=== PATIENT | female | born 1935 | race Caucasian/White ===

== ENCOUNTER 2017-06-05 11:43 | Emergency (ER) | payer BC, MEDICARE, SELFPAY ==
[2017-06-05 11:51] VITALS: BP 156/81; PULSE 114; RESP 18; TEMP 36.9; O2SAT 97; BMI 24.7
--- NOTE | 2017-06-05 12:08 | HMH.EDGENADL ---
ED Disposition Clinical Impression: Dementia Qualifiers: Dementia type: Alzheimer's disease Upper respiratory infection Qualifiers: Pharyngitis/tonsillitis etiology: unspecified etiology Disposition: Home, Self-Care Condition on Discharge: Good Instructions: DI for Alzheimer's Disease, Common Cold Additional Instructions: Zithromax, see Dr. Lin and talk with him about need for sitter and/or home health needs for support for caregivers Referrals: Aby Lin [Primary Care Provider] - - Critical Care Critical Care Time: No Attestation: On 06/05/17, the high probability of a clinically significant, sudden or life threatening deterioration of the following system(s) required my full and direct attention, intervention and personal management. The time I documented below is in addition to time spent performing reported procedures but includes the following listed in this critical care notation. Medical Decision Making Vital Signs: 06/05/17 11:51 06/05/17 14:14 Temperature 98.4 F Temperature Source Oral Pulse Rate [Right Brachial] 114 H 96 H Respiratory Rate 18 18 Blood Pressure [Right Arm] 156/81 147/92 Blood Pressure Mean [Right Arm] 106 110 Blood Pressure Source [Right Arm] Automatic Cuff Automatic Cuff Blood Pressure Position [Right Arm] Sitting Sitting 02 Sat by Pulse Oximetry 97 92 L Oxygen Delivery Method Room Air Room Air - Lab Data Lab Results 06/05/17 11:51: POC Glucose 106 06/05/17 12:20: WBC 5.6, RBC 4.50, Hgb 14.0, Hct 41.8, MCV 92.8, MCH 31.1, MCHC 33.5, RDW 13.0, Plt Count 172, MPV 8.4, Neut % (Auto) 75.7, Lymph % (Auto) 16.5, [place] % (Auto) 5.5, Eos % (Auto) 1.4, Baso % (Auto) 0.9, Neut # (Auto) 4.3, Lymph # (Auto) 0.9, [place] # (Auto) 0.3, Eos # (Auto) 0.1, Baso # (Auto) 0.1 06/05/17 12:20: Sodium 133 L, Potassium 3.7, Chloride 98, Carbon Dioxide 24, Anion Gap 14.7, BUN 15, Creatinine 1.19 H, Estimated Creat Clear 35, Estimated GFR 43 L, Est GFR ( Amer) 53 L, Glucose 99, Calcium 8.6, Total Bilirubin 0.9, AST 30, ALT 21, Alkaline Phosphatase 84, Total Protein 8.0, Albumin 3.7, Globulin 4.3 H, Albumin/Globulin Ratio 0.9 L 06/05/17 12:20: Lactic Acid 1.1 06/05/17 12:25: Influenza Type A Ag Negative, Influenza Type B Ag Negative 06/05/17 12:30: Urine Color Yellow, Urine Appearance Clear, Urine pH 6.0, Ur Specific [place] 1.025, Urine Protein 30, Urine Glucose (UA) Negative, Urine Ketones Trace, Urine Blood Trace-i, Urine Nitrate Negative, Urine Bilirubin Negative, Urine Urobilinogen 0.2, Ur Leukocyte Esterase Negative, Urine WBC 3-5, Ur Squamous Epith Cells 5-10, Urine Bacteria 3+ Result diagrams: 06/05/17 12:20 06/05/17 12:20 Orders (Tests/Meds): ED MEDICATIONS Generic Name Dose Route Start Last Admin Trade Name Freq PRN Reason Stop Dose Admin Sodium Chloride 1,000 mls @ 100 mls/hr 06/05/17 12:30 Sod Chloride 0.9% 1000ml Bag IV 07/05/17 12:29 .Q10H [facility] ORDERS Category Date Time Status Blood Culture Stat Micro 06/05/17 12:20 Received Urine Culture Stat Micro 06/05/17 12:30 Received ECG Request by /Tana Stat Y 06/05/17 12:22 Ordered - Radiology Data #1 Image(s): Chest Image Reviewed: Yes I reviewed the patient's radiology results, Yes I have reviewed radiologist's interpretation Preliminary Findings: Normal Heart Size (suspected bibasilar infiltrate per radiologist) suspect bibasilar infiltrate. - CT Data CT Scan: Head Time Received: 15:[address] Reviewed: Yes: I have reviewed the patient's CT results Preliminary Findings: Normal/NAD - ECG Data Tracing #1 I reviewed this ECG and interpreted as documented below: - Caden Inquiry Pt receiving controlled substance: No - Reevaluation(s) Time: 15:48 (Patient neurologically unchanged. agrees to follow-up with Dr. Lin next week and to discuss need for home health.) General Adult HPI - General Chief complaint: Altered Mental Status Stated complaint: mental s
--- NOTE | 2017-06-05 12:11 | XR_ITS ---
XR chest 2V Ordering Physician: Rani Lucio MD Patient Age: 82 years: Female HISTORY: ITS.REASON: SOB TECHNIQUE: PA and lateral chest COMPARISON :03/10/2017 FINDINGS There is chronic changes at the lung bases but suspect additional minimal infrahilar infiltrate extending towards lower lobe of both left and right lung base. Subtle suspect infiltrate slightly more diffuse I believe on right lung base. Right lower lobe but does not obscure the hemidiaphragm. Clinical correlation required. There are Underlying chronic lung changes borderline thickened central airways reflecting chronic change and slight coarsening markings throughout the lungs bilaterally. . Heart normal size. [place] and mediastinal structures unremarkable and stable. No pleural effusion. No pneumothorax. Chest wall unremarkable. IMPRESSION: Suspect mild infrahilar/bibasilar infiltrate superimposed on chronic changes..
--- NOTE | 2017-06-05 12:11 | CT_ITS ---
CT Request head Ordering Physician: Rani Lucio MD Patient Age: 82 years: Female HISTORY: ITS.REASON: confusion . Mental status changes TECHNIQUE: Routine axial CT head without contrast. Bone and brain windows performed. No previous studies for comparison. COMPARISON :None FINDINGS No definitive acute findings No hemorrhage. No territorial infarct. No subdural collection Prominent diffuse cerebral atrophy. Typical to slightly advanced for age. Chronic small vessel deep white matter changes likely account for the vague low-density throughout periventricular deep white matter.. Also Noting vague low-density focus on Most evident anteriorly left basal ganglia and towards left insular cortex which I favor more likely reflects chronic small vessel feature.... Difficult to totally exclude a recent event but more likely old. I would note upper normal density at the middle cerebral arteries bilaterally particularly the right. Warrants correlation. Could reflect a relative dehydration. Also note basilar artery tip upper normal prominence. The posterior fossa is unremarkable CP angles clear. The ventricles and basal cisterns are clear with the right lateral ventricle slightly more generous than the left likely reflecting normal variation. Moderate bilateral bilateral ethmoid sinusitis moderate mucosal thickening here with mild mucosal thickening and sphenoid sinus and extending to the superior maxillary sinuses which are incompletely visualized. Small underdeveloped frontal sinus. Deviation nasal septum. Mastoid air cells fairly clear with middle air and IACs unremarkable =====IMPRESSION: 1. No discrete acute intracranial findings. No hemorrhage. No territorial infarct. No subdural collection 2. Prominent Diffuse cerebral atrophy.. Typical to Slightly advanced for age 3. Chronic small vessel deep white matter ischemic changes throughout cerebral hemispheres as described above in text.] Nothing definitely acute
--- NOTE | 2017-06-05 12:22 | ED_ITS ---
ED Disposition Clinical Impression: Dementia Qualifiers: Dementia type: Alzheimer's disease Upper respiratory infection Qualifiers: Pharyngitis/tonsillitis etiology: unspecified etiology Disposition: Home, Self-Care Condition on Discharge: Good Instructions: DI for Alzheimer's Disease, Common Cold Additional Instructions: Zithromax, see Dr. Lin and talk with him about need for sitter and/or home health needs for support for caregivers Referrals: Aby Lin [Primary Care Provider] - - Critical Care Critical Care Time: No Attestation: On 06/05/17, the high probability of a clinically significant, sudden or life threatening deterioration of the following system(s) required my full and direct attention, intervention and personal management. The time I documented below is in addition to time spent performing reported procedures but includes the following listed in this critical care notation. Medical Decision Making Vital Signs: 06/05/17 11:51 06/05/17 14:14 Temperature 98.4 F Temperature Source Oral Pulse Rate [Right Brachial] 114 H 96 H Respiratory Rate 18 18 Blood Pressure [Right Arm] 156/81 147/92 Blood Pressure Mean [Right Arm] 106 110 Blood Pressure Source [Right Arm] Automatic Cuff Automatic Cuff Blood Pressure Position [Right Arm] Sitting Sitting 02 Sat by Pulse Oximetry 97 92 L Oxygen Delivery Method Room Air Room Air - Lab Data Lab Results 06/05/17 11:51: POC Glucose 106 06/05/17 12:20: WBC 5.6, RBC 4.50, Hgb 14.0, Hct 41.8, MCV 92.8, MCH 31.1, MCHC 33.5, RDW 13.0, Plt Count 172, MPV 8.4, Neut % (Auto) 75.7, Lymph % (Auto) 16.5 , [place] % (Auto) 5.5, Eos % (Auto) 1.4, Baso % (Auto) 0.9, Neut # (Auto) 4.3, Lymph # (Auto) 0.9, [place] # (Auto) 0.3, Eos # (Auto) 0.1, Baso # (Auto) 0.1 06/05/17 12:20: Sodium 133 L, Potassium 3.7, Chloride 98, Carbon Dioxide 24, Anion Gap 14.7, BUN 15, Creatinine 1.19 H, Estimated Creat Clear 35, Estimated GFR 43 L, Est GFR ( Amer) 53 L, Glucose 99, Calcium 8.6, Total Bilirubin 0.9, AST 30, ALT 21, Alkaline Phosphatase 84, Total Protein 8.0, Albumin 3.7, Globulin 4.3 H, Albumin/Globulin Ratio 0.9 L 06/05/17 12:20: Lactic Acid 1.1 06/05/17 12:25: Influenza Type A Ag Negative, Influenza Type B Ag Negative 06/05/17 12:30: Urine Color Yellow, Urine Appearance Clear, Urine pH 6.0, Ur Specific [place] 1.025, Urine Protein 30, Urine Glucose (UA) Negative, Urine Ketones Trace, Urine Blood Trace-i, Urine Nitrate Negative, Urine Bilirubin Negative, Urine Urobilinogen 0.2, Ur Leukocyte Esterase Negative, Urine WBC 3-5 , Ur Squamous Epith Cells 5-10, Urine Bacteria 3+ Result diagrams: 06/05/17 12:20 06/05/17 12:20 Orders (Tests/Meds): ED MEDICATIONS Generic Name Dose Route Start Last Admin Trade Name Freq PRN Reason Stop Dose Admin Sodium Chloride 1,000 mls @ 100 mls/hr 06/05/17 12:30 Sod Chloride 0.9% 1000ml Bag IV 07/05/17 12:29 .Q10H [facility] ORDERS Category Date Time Status Blood Culture Stat Micro 06/05/17 12:20 Received Urine Culture Stat Micro 06/05/17 12:30 Received ECG Request by /Tana Stat Y 06/05/17 12:22 Ordered - Radiology Data #1 Image(s): Chest Image Reviewed: Yes I reviewed the patient's radiology results, Yes I have reviewed radiologist's interpretation Preliminary Findings: Normal Heart Size (suspected bibasilar infiltrate per radiologist) suspect bib
[2017-06-05 12:25] LABS: POC Glucose,Bedside 106 mg/dL
[2017-06-05 12:41] LABS: Microscopic, Urine URINE MICROSCOPIC (MICROSCOPIC)
[2017-06-05 12:46] LABS: Basophils # 0.1 K/mm3 (0-0.2); Basophils % 0.9 % (0.1-2.0); Eosinophils # 0.1 K/mm3 (0.0-0.4); Eosinophils % 1.4 % (0.1-12.0); Hematocrit 41.8 % (37.0-47.0); Lymphocytes # 0.9 K/mm3 (0.7-4.5); Lymphocytes % 16.5 K/mm3 (10-50); Mean Corpuscular HGB Conc 33.5 g/dL (31.8-35.4); Mean Corpuscular Hemoglobin 31.1 pg (27.0-31.2); Mean Corpuscular Volume 92.8 fl (81-99); Mean Platelet Volume 8.4 fl (7.4-10.4); Monocytes # 0.3 K/mm3 (0.1-1.0); Monocytes % 5.5 % (1.7-9.3); Neutrophils # 4.3 K/mm3 (1.8-7.8); Neutrophils % 75.7 % (37.0-80.0); Platelet Count 172 K/mm3 (142-424); White Blood Count 5.6 K/mm3 (4.8-10.8)
[2017-06-05 12:46] LABS: Appearance,Urine CLEAR (Clear); Bilirubin,Urine Negative (Negative); Blood, Urine TRACE-I (Negative); Color,Urine YELLOW (Yellow); Glucose,Urine (UA) Negative (Negative); Ketones,Urine TRACE (Negative); Leukocyte Esterase,Urine Negative (Negative); Nitrate,Urine Negative (Negative); Protein,Urine 30 (Negative); Specific Gravity, Urine 1.025 (1.005-1.030); Urobilinogen,Urine 0.2 EU/dl (0.2)
[2017-06-05 12:54] LABS: Alanine Aminotransferase 21 U/L (12-78); Albumin Level 3.7 gm/dL (3.4-5.0); Albumin/Globulin Ratio 0.9 (1.1-1.8); Alkaline Phosphatase 84 U/L (46-116); Anion Gap 14.7 mEq/L (5-15); Aspartate Amino Transferase 30 U/L (15-37); Bilirubin,Total 0.9 mg/dL (0.2-1.0); Blood Urea Nitrogen 15 mg/dL (7-18); Calcium 8.6 mg/dL (8.5-10.1); Carbon Dioxide 24 mmol/L (21.0-32.0); Chloride 98 mmol/L (98-107); Creatinine Clearance Estimated 35 mL/min (0-300); Creatinine,Serum 1.19 mg/dL (0.55-1.02); Estimated Glomerular Filt Rate 43 ml/min (>60); GFR (African American) 53 ML/MIN (>60); Globulin 4.3 gm/dl (1.3-3.2); Glucose 99 mg/dL (74-106); Potassium 3.7 mmoL/L (3.5-5.1); Sodium 133 mmol/L (136-145)
[2017-06-05 12:55] LABS: Bacteria,Urine 3+ /lpf
[2017-06-05 12:58] LABS: Lactic Acid 1.1 mmol/L (0.4-2.0)
[2017-06-05 14:14] VITALS: BP 147/92; PULSE 96; RESP 18; O2SAT 92
== END 2017-06-05 16:30 | disposition home or self-care (01) ==
PROVIDERS: Emergency Provider Emergency Medicine; Family Provider Family Medicine; PCP Family Medicine
DX: G30.9 Alzheimer's disease, unspecified (principal); F02.80 Dementia in other diseases classified elsewhere, unspecified severity, without behavioral disturbance, psychotic disturbance, mood disturbance, and anxiety; J06.9 Acute upper respiratory infection, unspecified; Z85.9 Personal history of malignant neoplasm, unspecified
CPT/HCPCS: 71046; 80053; 81001; 82962; 83605; 85025; 87040; 87086; 87275; 87276; 93005; 99284

== ENCOUNTER 2017-06-10 00:07 | Emergency (ER) | payer BC, MEDICARE, SELFPAY ==
[2017-06-10 00:15] VITALS: BP 154/98; PULSE 99; RESP 18; TEMP 36.7; O2SAT 93; BMI 24.7
[2017-06-10 01:15] LABS: Basophils # 0.1 K/mm3 (0-0.2); Basophils % 0.8 % (0.1-2.0); Eosinophils # 0.2 K/mm3 (0.0-0.4); Eosinophils % 2.5 % (0.1-12.0); Hematocrit 36.2 % (37.0-47.0); Hemoglobin 12.5 g/dL (12.2-16.2); Lymphocytes # 1.5 K/mm3 (0.7-4.5); Lymphocytes % 22.7 K/mm3 (10-50); Mean Corpuscular HGB Conc 34.5 g/dL (31.8-35.4); Mean Corpuscular Hemoglobin 31.6 pg (27.0-31.2); Mean Corpuscular Volume 91.5 fl (81-99); Mean Platelet Volume 8.7 fl (7.4-10.4); Monocytes # 0.3 K/mm3 (0.1-1.0); Monocytes % 5.1 % (1.7-9.3); Neutrophils # 4.7 K/mm3 (1.8-7.8); Neutrophils % 68.9 % (37.0-80.0); Platelet Count 220 K/mm3 (142-424); Red Blood Count 3.96 M/mm3 (4.20-5.40); White Blood Count 6.8 K/mm3 (4.8-10.8)
[2017-06-10 01:31] LABS: Alanine Aminotransferase 22 U/L (12-78); Albumin Level 3.4 gm/dL (3.4-5.0); Albumin/Globulin Ratio 0.8 (1.1-1.8); Alkaline Phosphatase 73 U/L (46-116); Anion Gap 16.1 mEq/L (5-15); Aspartate Amino Transferase 25 U/L (15-37); Bilirubin,Total 0.5 mg/dL (0.2-1.0); Blood Urea Nitrogen 14 mg/dL (7-18); Calcium 8.6 mg/dL (8.5-10.1); Carbon Dioxide 25 mmol/L (21.0-32.0); Chloride 100 mmol/L (98-107); Creatinine Clearance Estimated 43 mL/min (0-300); Creatinine,Serum 1.02 mg/dL (0.55-1.02); Estimated Glomerular Filt Rate 52 ml/min (>60); GFR (African American) 63 ML/MIN (>60); Globulin 4.3 gm/dl (1.3-3.2); Glucose 102 mg/dL (74-106); Potassium 3.1 mmoL/L (3.5-5.1); Sodium 138 mmol/L (136-145); Total Protein,Serum 7.7 gm/dL (6.4-8.2)
--- NOTE | 2017-06-10 01:54 | HMH.EDAMS ---
ED Disposition Clinical Impression: Upper respiratory infection Qualifiers: URI type: unspecified URI Qualified Code(s): J06.9 - Acute upper respiratory infection, unspecified Dementia Qualifiers: Dementia type: Alzheimer's disease Alzheimer's disease onset: unspecified onset Dementia behavioral disturbance: with behavioral disturbance Qualified Code(s): G30.9 - Alzheimer's disease, unspecified; F02.81 - Dementia in other diseases classified elsewhere with behavioral disturbance Disposition: Home, Self-Care Condition on Discharge: Good Instructions: DI for Alzheimer's Disease Additional Instructions: call pcp for follow up Referrals: Aby Lin [Primary Care Provider] - - Critical Care Critical Care Time: No Attestation: On 06/10/17, the high probability of a clinically significant, sudden or life threatening deterioration of the following system(s) required my full and direct attention, intervention and personal management. The time I documented below is in addition to time spent performing reported procedures but includes the following listed in this critical care notation. Medical Decision Making Vital Signs: 06/10/17 00:15 Temperature 98.0 F Temperature Source Oral Pulse Rate [Right Radial] 99 H Respiratory Rate 18 Blood Pressure [Right Arm] 154/98 Blood Pressure Mean [Right Arm] 116 Blood Pressure Source [Right Arm] Manual Cuff/ Doppler Blood Pressure Position [Right Arm] Sitting 02 Sat by Pulse Oximetry 93 L Oxygen Delivery Method Room Air - Lab Data Lab results reviewed: Yes: I reviewed the patient's lab results. Lab Results 06/10/17 01:15: WBC 6.8, RBC 3.96 L, Hgb 12.5, Hct 36.2 L, MCV 91.5, MCH 31.6 H, MCHC 34.5, RDW 13.0, Plt Count 220, MPV 8.7, Neut % (Auto) 68.9, Lymph % (Auto) 22.7, [place] % (Auto) 5.1, Eos % (Auto) 2.5, Baso % (Auto) 0.8, Neut # (Auto) 4.7, Lymph # (Auto) 1.5, [place] # (Auto) 0.3, Eos # (Auto) 0.2, Baso # (Auto) 0.1 06/10/17 01:15: Sodium 138, Potassium 3.1 L, Chloride 100, Carbon Dioxide 25, Anion Gap 16.1 H, BUN 14, Creatinine 1.02, Estimated Creat Clear 43, Estimated GFR 52 L, Est GFR ( Amer) 63, Glucose 102, Calcium 8.6, Total Bilirubin 0.5, AST 25, ALT 22, Alkaline Phosphatase 73, Total Protein 7.7, Albumin 3.4, Globulin 4.3 H, Albumin/Globulin Ratio 0.8 L Result diagrams: 06/10/17 01:15 06/10/17 01:15 Orders (Tests/Meds): ORDERS Category Date Time Status Troponin I Stat Lab 06/10/17 01:15 Received - Caden Inquiry Pt receiving controlled substance: No Altered Mental Status HPI - General Chief Complaint: Abdominal Pain Stated Complaint: Stomach pain,confusion Time Seen by Provider: 06/10/17 01:54 Mode of Arrival: Ambulatory Source of Information: Patient, Spouse, Medical Record Limitations: pt poor historian Description of Symptoms (Recalled from ER Triage Doc. by RN): PT/FAMILY REPORTS ABDOMINAL PAIN - History of Present Illness HPI narrative: this wf with dementia who has occ abd pain with cough - she was seen 06/05/17 and chart reviewed and on prob keflex from pcp who she saw on wednesday- MD complaint: confusion Onset (ago): day(s) Timing confirmed by: spouse Severity: moderate Consistency of symptoms: waxing and waning, getting worse Context: other (dementia) - Related Data Home Medications Medication Instructions Recorded Confirmed ALPRAZolam [Xanax 0.5mg tab] 0.5 mg PO TIDP PRN 06/05/17 06/10/17 hydroCHLOROthiazide [HCTZ 25mg 25 mg PO DAILY 06/05/17 06/10/17 tab] Allergies Allergy/AdvReac Type Severity Reaction Status Date / Time No Known Drug Allergies Allergy Unknown Verified 06/10/17 00:33 [NKDA] [facility] History I have reviewed the patient's past medical history: Yes Medical History: Reports:: Cancer Denies:: Internal Pacemaker Laterality Cases: Right: Lumpectomy Other Surgeries: No: Pacemaker - *Social History Smoking Status: Never smoker Alcohol Intake: never - Psychiatri
--- NOTE | 2017-06-10 01:57 | ED_ITS ---
ED Disposition Clinical Impression: Upper respiratory infection Qualifiers: URI type: unspecified URI Qualified Code(s): J06.9 - Acute upper respiratory infection, unspecified Dementia Qualifiers: Dementia type: Alzheimer's disease Alzheimer's disease onset: unspecified onset Dementia behavioral disturbance: with behavioral disturbance Qualified Code(s): G30.9 - Alzheimer's disease, unspecified; F02.81 - Dementia in other diseases classified elsewhere with behavioral disturbance Disposition: Home, Self-Care Condition on Discharge: Good Instructions: DI for Alzheimer's Disease Additional Instructions: call pcp for follow up Referrals: Aby Lin [Primary Care Provider] - - Critical Care Critical Care Time: No Attestation: On 06/10/17, the high probability of a clinically significant, sudden or life threatening deterioration of the following system(s) required my full and direct attention, intervention and personal management. The time I documented below is in addition to time spent performing reported procedures but includes the following listed in this critical care notation. Medical Decision Making Vital Signs: 06/10/17 00:15 Temperature 98.0 F Temperature Source Oral Pulse Rate [Right Radial] 99 H Respiratory Rate 18 Blood Pressure [Right Arm] 154/98 Blood Pressure Mean [Right Arm] 116 Blood Pressure Source [Right Arm] Manual Cuff/ Doppler Blood Pressure Position [Right Arm] Sitting 02 Sat by Pulse Oximetry 93 L Oxygen Delivery Method Room Air - Lab Data Lab results reviewed: Yes: I reviewed the patient's lab results. Lab Results 06/10/17 01:15: WBC 6.8, RBC 3.96 L, Hgb 12.5, Hct 36.2 L, MCV 91.5, MCH 31.6 H , MCHC 34.5, RDW 13.0, Plt Count 220, MPV 8.7, Neut % (Auto) 68.9, Lymph % (Auto ) 22.7, [place] % (Auto) 5.1, Eos % (Auto) 2.5, Baso % (Auto) 0.8, Neut # (Auto) 4.7, Lymph # (Auto) 1.5, [place] # (Auto) 0.3, Eos # (Auto) 0.2, Baso # (Auto) 0.1 06/10/17 01:15: Sodium 138, Potassium 3.1 L, Chloride 100, Carbon Dioxide 25, Anion Gap 16.1 H, BUN 14, Creatinine 1.02, Estimated Creat Clear 43, Estimated GFR 52 L, Est GFR ( Amer) 63, Glucose 102, Calcium 8.6, Total Bilirubin 0.5, AST 25, ALT 22, Alkaline Phosphatase 73, Total Protein 7.7, Albumin 3.4, Globulin 4.3 H, Albumin/Globulin Ratio 0.8 L Result diagrams: 06/10/17 01:15 06/10/17 01:15 Orders (Tests/Meds): ORDERS Category Date Time Status Troponin I Stat Lab 06/10/17 01:15 Received - Caden Inquiry Pt receiving controlled substance: No Altered Mental Status HPI - General Chief Complaint: Abdominal Pain Stated Complaint: Stomach pain,confusion Time Seen by Provider: 06/10/17 01:54 Mode of Arrival: Ambulatory Source of Information: Patient, Spouse, Medical Record Limitations: pt poor historian Description of Symptoms (Recalled from ER Triage Doc. by RN): PT/FAMILY REPORTS ABDOMINAL PAIN - History of Present Illness HPI narrative: this wf with dementia who has occ abd pain with cough - she was seen 06/05/17 and chart reviewed and on prob keflex from pcp who she saw on wednesday- MD complaint: confusion Onset (ago): day(s) Timing confirmed by: spouse Severity: moderate Consistency of symptoms: waxing and waning, getting worse Context: other (dementia) - Related Data Home Medications Medication Instructions Recorded Confirmed ALPRAZolam [Xanax 0.5mg t
[2017-06-10 02:25] LABS: Troponin I < 0.02 ng/ml (0.00-0.06)
== END 2017-06-10 02:35 | disposition home or self-care (01) ==
PROVIDERS: Emergency Provider Emergency Medicine; Family Provider Family Medicine; PCP Family Medicine
DX: J06.9 Acute upper respiratory infection, unspecified (principal); G30.9 Alzheimer's disease, unspecified; F02.80 Dementia in other diseases classified elsewhere, unspecified severity, without behavioral disturbance, psychotic disturbance, mood disturbance, and anxiety; Z79.899 Other long term (current) drug therapy; Z85.9 Personal history of malignant neoplasm, unspecified
CPT/HCPCS: 80053; 84484; 85025; 99283